=== PATIENT | male | born 1955 | race Caucasian/White ===

== ENCOUNTER → 2020-06-21 16:01 | Outpatient (BNVA) | payer MEDICARE, OTHER, SELFPAY | PROVIDERS: Family Provider Internal Medicine; PCP Internal Medicine; Visit Provider Nurse Practitioner Family | DX: Z20.828 Contact with and (suspected) exposure to other viral communicable diseases (principal); J06.9 Acute upper respiratory infection, unspecified | CPT/HCPCS: 87635 ==

== ENCOUNTER → 2022-05-03 08:28 | Outpatient (BNVA) | payer MEDICARE, OTHER, SELFPAY | PROVIDERS: Family Provider Internal Medicine; PCP Internal Medicine; Visit Provider Student in an Organized Health Care Education/Training Program | DX: M16.12 Unilateral primary osteoarthritis, left hip (principal) | CPT/HCPCS: 73502; 99203 ==

== ENCOUNTER → 2022-12-26 14:04 | Outpatient (BNVA) | payer MEDICARE, OTHER, SELFPAY | PROVIDERS: PCP Internal Medicine; Visit Provider Podiatrist Foot & Ankle Surgery | DX: M20.21 Hallux rigidus, right foot (principal); M20.22 Hallux rigidus, left foot | CPT/HCPCS: 73630; 99203 ==

== ENCOUNTER → 2023-09-26 07:53 | Outpatient (BNVA) | payer MEDICARE, OTHER, SELFPAY | PROVIDERS: PCP Internal Medicine; Visit Provider Student in an Organized Health Care Education/Training Program | DX: M16.12 Unilateral primary osteoarthritis, left hip (principal) | CPT/HCPCS: 73502; 99213 ==

== ENCOUNTER → 2024-01-31 08:00 | Outpatient (BNVA) | payer MEDICARE, OTHER, SELFPAY | PROVIDERS: PCP Internal Medicine; Visit Provider Student in an Organized Health Care Education/Training Program | DX: M16.12 Unilateral primary osteoarthritis, left hip (principal) | CPT/HCPCS: 99213 ==

== ENCOUNTER → 2024-02-28 07:20 | Outpatient (BNVA) | payer MEDICARE, OTHER, SELFPAY | PROVIDERS: PCP Internal Medicine; Visit Provider Student in an Organized Health Care Education/Training Program | DX: M16.12 Unilateral primary osteoarthritis, left hip (principal) | CPT/HCPCS: 20610; 77002; 99213; J3301 ==

== ENCOUNTER → 2024-05-28 14:41 | Outpatient (BNVA) | payer MEDICARE, OTHER, SELFPAY | PROVIDERS: PCP Internal Medicine; Visit Provider Student in an Organized Health Care Education/Training Program | DX: M16.12 Unilateral primary osteoarthritis, left hip (principal) | CPT/HCPCS: 99213 ==

== ENCOUNTER → 2024-08-28 08:10 | Outpatient (BNVA) | payer MEDICARE, OTHER, SELFPAY | PROVIDERS: PCP Internal Medicine; Visit Provider Student in an Organized Health Care Education/Training Program | DX: Z01.818 Encounter for other preprocedural examination (principal); M16.12 Unilateral primary osteoarthritis, left hip | CPT/HCPCS: 99214 ==

== ENCOUNTER → 2024-10-06 14:04 | Outpatient (BNVA) | payer MEDICARE, OTHER, SELFPAY | PROVIDERS: PCP Internal Medicine; Visit Provider Physician Assistant | DX: M16.12 Unilateral primary osteoarthritis, left hip (principal); Z01.818 Encounter for other preprocedural examination | CPT/HCPCS: 36415; 80053; 81003; 85025; 99213 ==

== ENCOUNTER → 2024-10-13 08:40 | Outpatient (BNVA) | payer MEDICARE, OTHER, SELFPAY | PROVIDERS: PCP Internal Medicine; Visit Provider Family Medicine | DX: Z01.818 Encounter for other preprocedural examination (principal) | CPT/HCPCS: 93005 ==

== ENCOUNTER 2024-10-20 10:19 | Outpatient (CLI) | payer MEDICARE, OTHER, SELFPAY ==
--- NOTE | 2024-10-20 10:26 | CT_ITS ---
WS: [id number] CT LEFT Hip NONCONTRAST [facility] TECHNIQUE: Noncontrast CT of the LEFT hip to include the LEFT knee CLINICAL INFORMATION: djd hip DLP: [id number] scans at [facility] use at least one of these dose optimization techniques: automated exposure control; mA and/or kV adjustment per patient size (includes targeted exams where dose is matched to clinical indication); or iterative reconstruction. FINDINGS: Advanced arthritis LEFT hip with subchondral cystic change and sclerosis involving the femoral head and adjacent acetabulum. Zhtc-bb-eftm articulation. Hypertrophic changes about the acetabulum and femoral head. Prior postoperative changes RIGHT ZEE. 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 Prior postoperative changes LEFT TKA. Sigmoid diverticulosis. LEFT inguinal hernia containing a loop of sigmoid colon nonobstructed. Recommend clinical correlation Fat-containing umbilical hernia. Mild prostate enlargement. CT/CT hip LT [facility] [id number] IMPRESSION: 1. Images obtained for preoperative purposes. 2. LEFT inguinal hernia containing a loop of nonobstructed sigmoid colon.
== END 2024-10-20 10:20 | disposition home or self-care (01) ==
LOC: RAD 10:23
PROVIDERS: PCP Family Medicine; Visit Provider Student in an Organized Health Care Education/Training Program
DX: M16.12 Unilateral primary osteoarthritis, left hip (principal); K40.90 Unilateral inguinal hernia, without obstruction or gangrene, not specified as recurrent; K42.9 Umbilical hernia without obstruction or gangrene; N40.0 Benign prostatic hyperplasia without lower urinary tract symptoms; K57.30 Diverticulosis of large intestine without perforation or abscess without bleeding; Z01.818 Encounter for other preprocedural examination; Z98.890 Other specified postprocedural states
CPT/HCPCS: 73700

== ENCOUNTER 2024-11-02 14:36 | Observation (INO) | payer MEDICARE, OTHER, SELFPAY ==
[2024-11-02] VITALS (23 sets, daily range): BP systolic 102–147; BP diastolic 53–90; PULSE 70–95; RESP 5–18; TEMP 36.3–37.1; O2SAT 90–100; BMI 32.7
[2024-11-02] MEDS: sodium chloride 0.9% 1,000 ML 30 ML IV (09:14)
[2024-11-02 09:15] LABS: Basophils % 0.6 %; Eosinophils # 0.1 10^3/uL (0.0-0.8); Eosinophils % 1.8 %; Hematocrit 44.2 % (37-53); Lymphocytes % 21.1 %; Mean Corpuscular Hemoglobin 28.9 pg (27-33); Mean Corpuscular Volume 87.4 fl (82-101); Mean Platelet Volume 9.9 fL (7.4-10.4); Monocytes # 0.5 10^3/uL (0.2-0.9); Monocytes % 10.3 %; Neutrophils % 65.8 %; Nucleated Red Blood Cells % 0 %; Platelet Count 209 10^3/cmm (157-399); Red Blood Count 5.06 10^6/uL (3.85-5.65); Red Cell Distribution Width 12.8 % (12.1-15.1); White Blood Count 4.87 10^3/uL (3.29-11.43)
[2024-11-02 09:32] LABS: Blood Urea Nitrogen 12 mg/dL (8-23); Calcium 9.1 mg/dL (8.5-10.5); Carbon Dioxide 25 mmol/L (22-29); Chloride 103 mmol/L (98-107); Glucose 98 mg/dL (65-115); Osmolality Calculated 286 mOsm/kg (285-295); Sodium 138 mmol/L (136-145)
--- NOTE | 2024-11-02 09:50 | W.PM.OPSUD ---
Surgery/Procedure H&P Update DATE OF PROCEDURE: November 02, 2024 DATE H&P PERFORMED: 10/06/24 H&P UPDATE INFORMATION: I have reviewed H&P completed within last 30 days, I have examined patient prior to procedure and No changes to prior documentation PREOP DIAGNOSIS: Left hip degenerative joint disease PRIMARY INDICATION FOR PROCEDURE: Left hip degenerative joint disease PLANNED PROCEDURE: Operation Date: 11/02/24 10:10 Proposed Procedures p Len Robot Anterior Hip Arthroplasty(Left) - Michael Hernandez DO
[2024-11-02 09:55] LABS: Anion Gap 14.4 (5-19); Potassium 4.4 mmol/L (3.5-5.1)
[2024-11-02] MEDS: acetaminophen 1,000 MG/100 ML PIGGYBACK 400 MG IV ×2 (09:57→17:28)
[2024-11-02] MEDS: ketorolac 30 mg/mL INJ IVP (09:58)
[2024-11-02] MEDS: ceFAZolin 2,000 MG in sodium chloride 0.9% (plus) 50 ML 100 MG IV ×2 (10:16→18:08)
[2024-11-02] MEDS: tranexamic acid 1,000 mg/10mL SDV 1000 MG IV (10:31)
[2024-11-02] MEDS: VANCOMYCIN ADD-Vantage 1,000 MG VIAL 1000 MG XX (11:09)
[2024-11-02] MEDS: lidocaine-epi 1% 20 mL INJ INJECTION (11:09)
--- NOTE | 2024-11-02 13:04 | PC.NURSE ---
Called and updated , Rebecca, of case status. No questions from Rebecca.
--- NOTE | 2024-11-02 13:46 | PC.NURSE ---
Notified Rebecca that case was closing at this time. No further questions.
--- NOTE | 2024-11-02 14:04 | XR_ITS ---
WS: [id number] Exam: XR hip LT 2-3V wo/w pel* [id number] Date/Time of Exam: 11/02/2024 2:08 PM Reason For Exam: OR PICS Intraoperative AP image of the LEFT hip shows a total hip arthroplasty in place. Postoperative changes in the adjacent soft tissues.
--- NOTE | 2024-11-02 14:25 | P.OP_ITS ---
Operative Report Date of procedure: November 02, 2024 Surgeon: Michael Hernandez DO Larry Operator: Chapo Hernandez PA-C: PA was necessary for assistance in this case with leg positioning, hip reduction retraction and protection of neurovascular structures as well as assistance in implantation, wound closure and dressing application. Procedure: Preoperative diagnosis: Left hip degenerative joint disease Post-op diagnosis: Same Procedure done: Left total hip arthroplasty?Len robotic assisted?anterior?approach Implants: Atul Trident acetabular shell size 56 mm [place] acetabular screw 25 mm Atul acetabular screw 20 mm Atul insignia hip stem standard offset size 7 femur stem Trident 0 degree polyethylene 36 degree inner diameter 36 mm femoral head ceramic -5mm Surgeon: Michael Hernandez DO Anesthesia: Other (Spinal) Estimated blood loss: 300mL IV fluids: 1900 mL Urine output: 100 mL Complications: None Findings: See operative report narrative Condition: stable Disposition: floor Brief History: Patient is a 69-year-old male presented to my outpatient office setting findings consistent with ilkg-mi-dfpt arthritis advanced degenerative joint disease of t he Left hip.? We talked about treatment options as far as nonoperative and operative intervention. Pt has failed conservative treatment.? Patient's Left hip degenerative joint disease has severe with worsening pain and decreased range of motion and gait disturbance. we talked about treatment options at this point time pt understands the risk benefits complication alternatives surgical nonsurgical treatment options.? Patient understands the risk of surgery and agrees to proceed.? Patient has underwent a preoperative evaluation. Pt cleared for surical intervention. Pt understood and was agreeable to proceed with a Left total hip arthroplasty consent was reviewed and signed with patient.?? All questions answered.? Patient will be admitted postoperatively. Procedure: Patient was seen evaluated in the preoperative holding area.? Consent was reviewed and signed with patient.? Correct operative extremity was then marked. ? All questions were answered at this time.? Once cleared by anesthesia used to brought back to the operative suite he then underwent anesthesia per the anesthesia department of a spinal anesthetic. The patient was administered tranexamic acid and preop antibiotics, and placed in the supine position. All bony prominences were properly padded, securely fixed to the table, and administered?general?anesthetic. The patient was subsequently transferred from the hospital bed to the [place] table. Bilateral lower extremities were placed in the traction boots. The pelvis was well approximated against the perineal post.? Final timeout performed.? Patient received appropriate preoperative antibiotics. Both hips were then prepped and draped in a normal orthopedic fashion.? Started with a small incision 2 fingerbreadths above the ASIS on the left iliac wing to place? pelvic arrays.? Small incision was made directly down to bone.? 3 pelvic pins were placed with excellent fixation.? The robotic array was secured to the nonoperative iliac wing using sterile technique. The extremity was then definitively draped in standard, sterile fashion.? The array was found to be visible by the robot. ?A standard??anterior?supine approach was performed to the?operative hip joint. The skin was incised down to the tensor fascia khang muscle and fascia. Fascia was split longitudinally in line with its fibers. The tensor fascia khang muscle was retracted laterally. The appropriate retractors were placed superiorly. Lateral circumflex vessels were identified and appropriately ligated. The hip capsule was then identified.? Appropriate retractors were placed superiorly and inferiorly along the capsule directly onto bone.??That was split longitudinally up to the acetabular rim in line with the femoral neck. The femoral capsule was found to be significantly hypertrophic, thickened, and significantly fibrotic. The capsule was then elevated both superiorly and inferiorly down to the lesser trochanter as well as up towards the greater trochanter.? Tag stitches were applied with 0 Vicryl into the capsule.? Femoral check point was?then inserted and confirmed on the lateral trochanter proximal femur.? .? A distal marker?of a sterile EKG lead was placed into the distal femur for measurement of leg lengths.? Preoperative leg lengths were registered and confirmed at this point. Next the appropriate-sized neck cut was then performed after being measured with robotic assistance. Femoral head was removed atraumatically this was found to have significant degenerative changes and deformity with significant osteophyte formation.? Femoral head was found to be severely degenerated and flattening with, eburnated bone. Acetabulum was also inspected and was found to have peripheral osteophytes as well as no evidence of cartilage consistent with qfjl-pr-cjlv arthritis.? Appropriate retractors were then placed in the?anterior?and posterior wall.? The remaining labrum was then excised from the periphery of the acetabular rim. Pulvinar was excised.? At this point re gistration for the Len was performed on the acetabular side and confirmed. Once confirmed, any osteophytes able to be were removed. We planned 40 degrees of lateral opening and 20 degrees of anteversion. At this point in time there was issues with the preregistration of the reaming for the Len robotic assisted and at this point in time we brought in fluoroscopic x-ray guidance so we could ream this under direct visualization. We started off with a small reamer to medialize and once we had satisfactory medialization to flatten the groove for the cotyloid fossa as well as to the teardrop we then sequentially reamed up to a size 56 which had excellent rim fit and reaming. At this point in time brought in our retractors had direct visualization. Reamer removed excellent bleeding bone circumferentially with sufficient?anterior?and posterior wall. ?The definitive acetabular cup 56 mm was inserted and impacted under fluoroscopic imaging to maintain exact positioning of of water reamers were with goals of 40 degree lateral opening and 20 degree anteversion. This was then impacted and excellent position. We then under [employer] robotic were able to plot out the version of the cup which had satisfactory alignment consistent with the preoperative plan. Patient acetabular cup had excellent fixation and for added fixation we added 2 screws. It was then secured with 2x 6.5 mm cancellous screws in appropriate safe zone position.? I subsquently drilled measured and place appropriate length acetabular screws which measured 25 mm and 20 mm.? These had excellent fixation final x-rays were taken of the acetabular work and showed a seated and well fixed acetabular cup with appropriate position acetabular screws.? ?Next a 36-mm X3 neutral liner was impacted into the?acetabular shell and secured. Hip was then irrigated with copious amounts of irrigation. At this point, the remaining femoral releases were then performed allowing the adequate mobilization of the?Left?femur.? Traction was confirmed to being off to the Left lower extremity and the femur was then externally rotated, extended, and adducted giving adequate exposure of the proximal femur in the surgical wound. Box cut was then used to enter the intramedullary canal of the?femur. Canal finder was placed down the canal of the?operative femur. Appropriate-sized broaches from a size 0 up to a size 7 were impacted down the operative femoral canal with the appropriate amount of anteversion.? A multiple trials were attempted and it was found?that?-5mm neck was found to be most appropriate for a soft tissue tensioning offset, stability and the leg lengths. At this point in time we brought in fluoroscopic imaging and x-rayed the contralateral hip as well as the view of the pelvis and had satisfactory leg length alignment radiographically. ?Stability was then assessed and excellent stability with patient external rotation of greater?than 90 degrees and traction with no marcela dence of hip instability.? Appropriate tension noted of the soft tissues. At this point, the hip was relocated.? I utilized C arm to evaluate for leg lengths as well I did slightly at the lengthen comparative to the contralateral extremity but this was the appropriate size for patient's stability and excellent soft tissue tensioning. Operative hip was then re-dislocated using a bone hook. All trials were then removed from the?operative femur. Adequate exposure was then once again obtained. The trials were removed. The definitive Atul insignia hip stem standard offset size 7 was impacted d own the?femoral canal with the appropriate amount of anteversion. The appropriate sized head 36 mm ceramic -5 mm was impacted onto the trunnion, and the?operative?hip was then relocated with traction and internal rotation. Once again final fluoroscopic imaging was taken in both the lateral AP plane satisfactory implantation of left total hip arthroplasty with satisfactory placement as well as leg lengths comparative utilizing the fluoroscopic imaging. No evidence of periprosthetic fracture noted throughout the prosthesis throughout the procedure. Once again hip stability was assessed and found to have excellent stability and appropriate soft tissue tensioning.? Hip was irrigated with copious amounts of irrigation.? Vancomycin powder was placed within the wound bed for added infection prophylaxis.? The superior and inferior leaflets of the capsule were then closed with Ethibond suture.? Vicryl tag stitches were removed.? The superficial layer of the tensor fascia khang fascia was closed using 0 stratafix suture in a running fashion.? Subcutaneous tissues were closed with running 3-0 Stratafix, skin was closed with 4-0 monocryl.?Surgical Prineo glue and steri strips were?applied and covered with a carlitos incisional VAC dressing to the operative side.?The incision on the non- operative side for the robotic array was irrigated and closed with layered fashion of 0 Vicryl, 2-0 Vicryl and running Monocryl suture and surgical glue and covered with Silverlon. ?The patient was subsequently awoken per Anesthesia and transferred to PACU in satisfactory condition. ?Leg lengths and rotational profile were found to be appropriate. ? DISPOSITION: The patient will be admitted to the hospital for initiation of DVT prophylaxis, physical therapy, pain control. The patient is to weight bear as tolerated.?Anterior?hip precautions, postoperative antibiotics,?postoperative TXA and Eliquis?for DVT prophylaxis.? Patient will receive appropriate discharge instructions as well as pain medication postoperatively and will follow up in my office in 2 weeks.? Patient with work with PT/OT.? Internal medicine will be consulted for medical management
--- NOTE | 2024-11-02 14:28 | XR_ITS ---
WS: [id number] Exam: XR hip LT 2-3V wo/w pel* [id number] Date/Time of Exam: 11/02/2024 2:28 PM Reason For Exam: POST OP LT HIP LEFT total hip prosthesis is in satisfactory alignment. Postoperative changes in the adjacent soft tissues. XR/XR hip LT 2-3V wo/w pel* [id number] IMPRESSION: 1. LEFT total hip replacement in satisfactory position.
--- NOTE | 2024-11-02 14:30 | W.PM.BPON ---
Date of Procedure: [November 02, 2024] Surgeon: [Dr. Hernandez DO] Forensic Chemist(s): [Chapo Hernandez PA-C] Procedure(s) performed: [Left total hip arthroplasty with Len robotic assist] Findings of the procedure(s): [Left hip degenerative joint disease. Procedure went well as planned.] Estimated blood loss: [300 mL] Specimen(s) removed: [Femoral head] Post-operative diagnosis: [Left hip degenerative joint disease]
--- NOTE | 2024-11-02 14:36 | PM.PACU ---
PACU note Narrative: Patient is a 69-year-old male that just underwent a left total hip arthroplasty. Pt transferred to PACU in stable condition. Dressing is dry. pt is awake and alert. pt can wiggle toes and plantarflex and dorsiflex foot. Patient was able to slightly raise left leg off bed but was limited due to pain. Distal pulses are palpable toes are warm and well-perfused. Cap refill is normal and under 2 seconds. Sensation to foot is intact. Pain is controlled. Exam: awake Disposition: admitted
[2024-11-02] MEDS: fentaNYL 50 mcg/mL INJ 2mL IVP (14:57)
--- NOTE | 2024-11-02 15:15 | ANE.PACU2 ---
Inpatient post-anesthesia follow up: Airway intact: Yes Vital signs: Temperature 98.3 F Pulse Rate 61 Respiratory Rate 15 Blood Pressure 108/62 Pulse Oximetry 97 Oxygen Delivery Me thod Room Air Oxygen Flow Rate 8 Fraction of Inspir ed Oxygen Hydration adequate: Yes Nausea and vomiting: No Pain level: 1 Mental status: Baseline
--- NOTE | 2024-11-02 15:30 | PC.NURSE ---
1523 - Danae RN into room 267 - accepted pt - left hip dressing c/d/i- rosy scd's in place - VS 137/83 - pulse 73 - 02 98% temp 97.5
[2024-11-02] MEDS: oxyCODONE 5 mg IR Tab/Cap PO ×2 (17:25→22:06)
[2024-11-02] MEDS: lactated ringers 1,000 ML 75 ML IV (17:26)
[2024-11-02] MEDS: chlorhexidine gluconate 0.12% Btl 473 mL 30 ML MUCOUS MEM ×2 (17:26→20:51)
[2024-11-02] MEDS: iron polysaccharide complex 150 mg Capsule PO (17:26)
[2024-11-02] MEDS: calcium carb-vit d 600mg/400unit 1 Tablet 1 EACH PO (17:26)
[2024-11-02] MEDS: mupirocin oint 22 gm 1 APPLIC NASAL (17:27)
[2024-11-02] MEDS: tranexamic acid 1,000 MG/100 ML PREMIX 600 MG IV (18:39)
--- NOTE | 2024-11-02 19:11 | PM.CONSULT ---
Providers/Reason For Consult Consulting Physician/Specialty*: Frase/Hospitalist Reason for Consult*: HTN Requesting Physician: Dr Hernandez Attending Physician: Michael Hernandez DO Primary Care Provider: David Glover MD History of Present Illness History of Present Illness Lg Robles is a 69 year old male Who presented to [facility] today for planned left hip replacement by Dr. Hernandez. He underwent general anesthesia and had an estimated 300 mL blood loss. He is seen in his room after surgery and is doing well. He has a little bit of minor irritation in the back of his throat, but he attributes most of it to postnasal drainage which he takes Singulair for. Postoperative pain is controlled currently. No complaints of chest pain or difficulty breathing. Tolerating oral intake. He has past medical history of hypertension and hospitalist were consulted to assist in perioperative management of such. He did take his metoprolol today but as directed held his FLORES inhibitor. In talking with him he also has a history of prostatic hypertrophy primarily presenting as nocturia. Currently doing well overall without specific complaints. Mr. Robles had previously seen Dr. Jean but has an appointment with Dr. David Glover scheduled for November. Dr. Glover will assume primary care provider roles going forward. Review of Systems General: Reports: Other (ROS as per HPI or as noted here) Medications/Allergies Home Medications ?Medication ?Instructions ?Recorded ?Confirmed ?Last Taken ?Type aspirin 81 mg tablet,delayed 81 mg PO DAILY 05/03/22 10/28/24 10/27/24 History release hydrochlorothiazide 12.5 mg tablet 12.5 mg PO DAILY 05/03/22 11/02/24 11/01/24 History montelukast 10 mg tablet 10 mg PO DAILY 05/03/22 11/02/24 11/01/24 History tamsulosin 0.4 mg capsule 0.4 mg PO DAILY 05/03/22 11/02/24 11/01/24 History vit C 50 mg-E 15 unit-zinc cit 4.5 2 tab PO DAILY 05/03/22 10/28/24 10/28/24 History mg-lutein 2.5 mg-zeaxan chew tablet (fg microtec) benazepril 40 mg tablet 40 mg PO DAILY 09/26/23 10/28/24 10/28/24 History naproxen sodium 220 mg tablet 440 mg PO BID PRN Mild Pain (Scale 05/28/24 10/28/24 10/27/24 History (Flanax (naproxen)) Score 1-4) metoprolol succinate 25 mg 25 mg PO DAILY 11/02/24 11/02/24 11/02/24 07:00 History tablet,extended release 24 hr Allergies Allergy/AdvReac Type Severity Reaction Status Date / Time amoxicillin Allergy upset Verified 10/13/24 09:03 stomach and dirrahea Current Medications Generic Name Dose Route Start Last Admin Trade Name Freq PRN Reason Stop Dose Admin Calcium Carbonate 1 each 11/02/24 18:00 11/02/24 17:26 Calcium Carb-Vit D 600mg/400unit 1 Tablet PO 1 each BID PRITI Administration Chlorhexidine Gluconate 30 ml 11/02/24 17:00 11/02/24 17:26 Chlorhexidine Gluconate 0.12% Btl 473 Ml MUCOUS MEM 30 ml QID PRITI Administration Lactated Ringer's 1,000 mls @ 75 mls/hr 11/02/24 15:33 11/02/24 17:26 Lactated Ringers IV 75 mls/hr .[id number] PRITI Administration Acetaminophen 1,000 mg in 100 mls @ 400 mls/hr 11/02/24 18:00 11/02/24 18:08 Acetaminophen IV 11/03/24 10:14 Infused Q8H PRITI Infusion Cefazolin Sodium 2,000 mg/ 50 mls @ 100 mls/hr 11/02/24 18:15 11/02/24 18:55 Sodium Chloride IV 11/03/24 10:44 Infused Q8H PRITI Infusion Protocol Mupirocin 1 applic 11/02/24 18:00 11/02/24 17:27 Mupirocin Oint 22 Gm NASAL 11/07/24 17:59 1 applic BID PRITI Administration Oxycodone HCl 5 - 10 mg 11/02/24 15:33 11/02/24 17:25 Oxycodone 5 Mg Ir Tab/Cap PO 5 mg Q4H PRN Administration MODERATE PAIN Polysaccharide Iron Complex 150 mg 11/02/24 18:00 11/02/24 17:26 Iron Polysaccharide Complex 150 Mg Capsule PO 150 mg BIDWM PRITI Administration PFSH Acute PFSH: Medical History (Updated 11/02/24 @ 19:20 by Ericka Mark MD) Degenerative joint disease involving multiple joints BPH without obstruction/lower urinary tract symptoms Hypertension Surgical History (Updated 11/02/24 @ 20:45 by Ericka Mark MD) Status post right hip replacement Status post left knee replacement Status post left hip replacement (11/02/24) Dr Hernandez Social History (Updated 11/02/24 @ 20:45 by Ericka Mark MD) Smoking and tobacco/nicotine status: never used tobacco/nicotine Alcohol intake: current Alcohol intake frequency: holidays/special occasions only Substance/Drug Use: never Vitals/I&O/Wt Last Vital Signs Temp 97.9 F 11/02/24 18:15 Pulse 88 11/02/24 18:15 Resp 17 11/02/24 18:15 BP 111/73 11/02/24 18:15 Pulse Ox 96 11/02/24 18:15 O2 Del Method Room Air 11/02/24 18:15 O2 Flow Rate 8 11/02/24 14:33 11/02/24 11/02/24 11/02/24 06:59 14:59 22:59 Intake Total 2100 / 2100 250 / 2350 Output Total 300 / 300 Balance 1800 / 1800 250 / 2050 Weight last 48 hrs Weight 115.666 kg Weight 115.666 kg Physical Exam Narrative: Patient is awake and alert. Seen sitting up in bedside chair. Able to provide history. Normocephalic. Extraocular movements are intact. Lungs are clear. Regular rate and rhythm. Sneed catheter noted. Able to move toes of both feet. Surgical dressings intact. Urinary Catheter Management: Sneed: Cath Placed During This Visit: yes Reason for Continuing Indwelling Catheter: Other Urinary Catheter Date of Insertion: 11/02/24 Urinary Catheter Time of Insertion: 10:35 Data 11/02/24 09:01 11/02/24 09:01 Other Labs: Radiology Impressions Hip/Pelvis X-Ray 11/02/24 14:28 IMPRESSION: 1. LEFT total hip replacement in satisfactory position. Laboratory Results WBC 4.87 10^3/uL (3.29-11.43) 11/02/24 09:01 RBC 5.06 10^6/uL (3.85-5.65) 11/02/24 09:01 Hgb 14.60 g/dL (11.27-16.99) 11/02/24 09:01 Hct 44.2 % (37-53) 11/02/24 09:01 MCV 87.4 fl (82-101) 11/02/24 09:01 MCH 28.9 pg (27-33) 11/02/24 09:01 MCHC 33.0 g/dL (30-55) 11/02/24 09:01 RDW 12.8 % (12.1-15.1) 11/02/24 09:01 Plt Count 209 10^3/cmm (157-399) 11/02/24 09:01 MPV 9.9 fL (7.4-10.4) 11/02/24 09:01 Neut % (Auto) 65.8 % 11/02/24 09:01 Lymph % (Auto) 21.1 % 11/02/24 09:01 [place] % (Auto) 10.3 % 11/02/24 09:01 Eos % (Auto) 1.8 % 11/02/24 09:01 Baso % (Auto) 0.6 % 11/02/24 09:01 Neut # (Auto) 3.20 10^3/uL (1.8-7.7) 11/02/24 09:01 Lymph # (Auto) 1.0 10^3/uL (0.8-4.8) 11/02/24 09:01 [place] # (Auto) 0.5 10^3/uL (0.2-0.9) 11/02/24 09:01 Eos # (Auto) 0.1 10^3/uL (0.0-0.8) 11/02/24 09:01 Baso # (Auto) 0.0 10^3/uL (0.0-0.1) 11/02/24 09:01 Nucleated RBC % (auto) 0 % 11/02/24 09:01 Nucleated RBCs # 0.0 /100WBC 11/02/24 09:01 Sodium 138 mmol/L (136-145) 11/02/24 09:01 Potassium 4.4 mmol/L (3.5-5.1) 11/02/24 09:01 Chloride 103 mmol/L (98-107) 11/02/24 09:01 Carbon Dioxide 25 mmol/L (22-29) 11/02/24 09:01 Anion Gap 14.4 (5-19) 11/02/24 09:01 BUN 12 mg/dL (8-23) 11/02/24 09:01 Creatinine 0.8 mg/dL (0.7-1.2) 11/02/24 09:01 GFR Calculation Not Reportable 11/02/24 09:01 Glucose 98 mg/dL (65-115) 11/02/24 09:01 Calculated Osmolality 286 mOsm/kg (285-295) 11/02/24 09:01 Calcium 9.1 mg/dL (8.5-10.5) 11/02/24 09:01 Blood Type O Positive 11/02/24 09:01 Rho(D) Type Rh positive 11/02/24 09: Antibody Screen Negative 11/02/24 09:01 A&P Assessment and plan (1) Status post left hip replacement: POD 0 from surgery as per Dr Hernandez. Did well. - General anesthesia - Pain control - On cefazolin post-op regimen, s/p vancomycin x one dose - Has sneed with orders to remove - Has SCDs and orders for eliquis to start in am - Stool softeners, laxatives as needed - PT/OT to see - Plan is for home with home health tomorrow if remains stable (2) Hypertension: Chronically managed with benazepril and hydrochlorothiazide as well as metoprolol. FLORES inhibitor held today. Beta-bernie was taken. - Continue metoprolol succinate daily for now - Evaluate blood pressures tomorrow to determine when to resume benazepril and hydrochlorothiazide, both are currently held Qualifiers: Hypertension type: primary hypertension Qualified Code(s): I10 - Essential (primary) hypertension (3) BPH without obstruction/lower urinary tract symptoms: Chronically on tamsulosin - Continue Flomax as per home dosing Plan Continue home singular and aspirin Home naproxen held currently; will defer to ortho regarding home pain management regimen Holding home eye vitamin currently VTE prophylaxis: Eliquis to start in the morning Antibiotics: Usual perioperative antibiotics Pending studies: A.m. labs Telemetry: not currently indicated Sneed: Placed perioperatively, orders to remove in place Line(s): peripheral IVs Disposition plan: Home with home health and outpatient follow up anticipated Code Status: Full Code Thank you for consultation Plans discussed and he was given an opportunity to ask questions PDMP PDMP Reviewed: Last Reviewed 11/02/24 20:52 by Ericka Mark MD Consult Attestations Medical Necessity Statement: as per attending Diagnoses Status post left hip replacement Z96.642 Primary hypertension I10 Hypertension type: primary hypertension BPH without obstruction/lower urinary tract symptoms N40.0
[2024-11-03] MEDS: ceFAZolin 2,000 MG in sodium chloride 0.9% (plus) 50 ML 100 MG IV ×2 (01:23→10:40)
[2024-11-03] MEDS: acetaminophen 1,000 MG/100 ML PIGGYBACK 400 MG IV (01:26)
[2024-11-03 04:45] VITALS: BP 106/62; PULSE 64; RESP 20; TEMP 37; O2SAT 96
[2024-11-03 05:46] LABS: Basophils % 0.1 %; Eosinophils % 0.1 %; Hematocrit 33.9 % (37-53); Lymphocytes # 0.8 10^3/uL (0.8-4.8); Lymphocytes % 7.1 %; Mean Corpuscular HGB Conc 32.4 g/dL (30-55); Mean Corpuscular Hemoglobin 28.9 pg (27-33); Mean Corpuscular Volume 89.2 fl (82-101); Mean Platelet Volume 10.2 fL (7.4-10.4); Monocytes # 0.9 10^3/uL (0.2-0.9); Monocytes % 8.4 %; Neutrophils # 9.33 10^3/uL (1.8-7.7); Neutrophils % 83.8 %; Nucleated Red Blood Cells % 0 %; Platelet Count 188 10^3/cmm (157-399); Red Cell Distribution Width 12.9 % (12.1-15.1); White Blood Count 11.14 10^3/uL (3.29-11.43)
[2024-11-03 06:04] VITALS: RESP 16
[2024-11-03] MEDS: oxyCODONE 5 mg IR Tab/Cap PO ×2 (06:04→11:27)
[2024-11-03] MEDS: lactated ringers 1,000 ML 75 ML IV (06:05)
[2024-11-03 06:09] LABS: Anion Gap 9.4 (5-19); Blood Urea Nitrogen 15 mg/dL (8-23); Calcium 8.1 mg/dL (8.5-10.5); Carbon Dioxide 26 mmol/L (22-29); Chloride 104 mmol/L (98-107); Glucose 115 mg/dL (65-115); Osmolality Calculated 282 mOsm/kg (285-295); Potassium 4.4 mmol/L (3.5-5.1); Sodium 135 mmol/L (136-145)
[2024-11-03 07:19] VITALS: BP 108/62; PULSE 61; RESP 15; TEMP 36.8; O2SAT 97
[2024-11-03] MEDS: aspirin 81 mg EC Tablet PO (08:00)
[2024-11-03] MEDS: iron polysaccharide complex 150 mg Capsule PO (08:00)
[2024-11-03] MEDS: tamsulosin 0.4 mg Capsule PO (08:00)
[2024-11-03] MEDS: calcium carb-vit d 600mg/400unit 1 Tablet 1 EACH PO (08:01)
[2024-11-03] MEDS: apixaban 5 mg Tablet 2.5 MG PO (08:01)
[2024-11-03] MEDS: metoprolol succinate ER (24 HR) 25 mg Tablet PO (08:01)
[2024-11-03] MEDS: multivitamin therapeutic Tablet 1 TAB PO (08:01)
[2024-11-03] MEDS: montelukast sodium 10 mg Tablet PO (08:01)
[2024-11-03] MEDS: chlorhexidine gluconate 0.12% Btl 473 mL 30 ML MUCOUS MEM (08:05)
[2024-11-03] MEDS: mupirocin oint 22 gm 1 APPLIC NASAL (08:06)
--- NOTE | 2024-11-03 09:39 | PC.CHAP ---
Pastoral Care Encounter/Spiritual Assessment Type of Contact [] Declined filter tank tender helper visit [] Patient/Family/Request visit [] Outpatient visit [] Follow-up visit [] Physician referral [] Code/Alert [x] Routine visit [] Staff referral [] Actively dying [] Patient sleeping [] Family support [] [] Out of room [] Palliative care [] [] Receiving care in room [] Pre-surgical visit [] Trauma [] Long length of stay [] ICU visit [] Other: Relational/Emotional Strength [x] Patient feels connected with others/family/visitors/staff [] Distress [] Loneliness/isolation [] Abandonment Spirituality of Patient [x] Person of Nicole [x] Attends Synagogue of their Nicole [x] Believes in Prayer [x] Reads Bible or Christianity materials [] There are Spiritual issues to be addressed Sound Effects Manager Interventions [x] Prayer [x] Active listening [] Non-anxious presence [x] Spiritual/emotional support [] Crisis/trauma care [] Spiritual counseling [] Bereavement support [] Provided bereavement packet [] Provided Bible/devotional materials [] Provided toy/stuffed animal, coloring book to patient or family member [] Provided Communion [] Anointing/[place] [] Salvation [x] Completed spiritual assessment [] Other: Impact on Illness or Injury [] Angry [] Fearful [] Anxious [] Often cries [] Exhaustion [] Unable to work [] Unable to attend amish [] Unable to walk/stand [] Unable to read [] Unable to drive [] Unable to eat/drink [] Unable to sleep [] Unable to be with family [] Patient intubated [] Other: Summary Time spent with patient 5 min
--- NOTE | 2024-11-03 10:38 | P.PN_ITS ---
Subjective 2 Subjective: Seen today. Patient resting comfortably in recliner states his leg hurts. He has an ice pack over it at this time. I went over all of the patient's home medications with him. Vitals/I&O/Wt Last Vital Signs Temp 98.3 F 11/03/24 07:19 Pulse 61 11/03/24 07:19 Resp 15 11/03/24 07:19 BP 108/62 11/03/24 07:19 Pulse Ox 97 11/03/24 07:19 O2 Del Method Room Air 11/03/24 07:19 O2 Flow Rate 8 11/02/24 14:33 11/02/24 11/03/24 11/03/24 22:59 06:59 14:59 Intake Total 370 / 2470 1098.75 / 3568.75 240 / 240 Output Total 900 / 1200 Balance 370 / 2170 198.75 / 2368.75 240 / 240 Weight last 48 hrs Weight 120.882 kg Weight 120.882 kg Weight 115.666 kg Weight 115.666 kg Physical Exam 2 Narrative: Resting comfortably in recliner Complains of pain in left hip, ice pack covering the area. Did not check surgical incision as he stated that he was seen by orthopedic surgery for this little while before I walked in. Abdomen soft nontender Lungs clear to auscultation bilaterally No edema appreciated lower extremities. Urinary Catheter Management: Sneed: Cath Placed During This Visit: yes, but has since been removed by the nurse Reason for Continuing Indwelling Catheter: Decision to DC Catheter Urinary Catheter Date of Insertion: 11/02/24 Urinary Catheter Time of Insertion: 10:35 Date Urinary Catheter Removed: 11/03/24 Time Urinary Catheter Discontinued: 06:17 Data 11/03/24 05:24 11/03/24 05:24 A&P Assessment and plan (1) Status post left hip replacement: POD 0 from surgery as per Dr Hernandez. Did well. - General anesthesia - Pain control - On cefazolin post-op regimen, s/p vancomycin x one dose - Has sneed with orders to remove - Has SCDs and orders for eliquis to start in am - Stool softeners, laxatives as needed - PT/OT to see - Plan is for home with home health tomorrow if remains stable (2) Hypertension: Chronically managed with benazepril and hydrochlorothiazide as well as metoprolol. FLORES inhibitor held today. Beta-bernie was taken. - Continue metoprolol succinate daily for now - Evaluate blood pressures tomorrow to determine when to resume benazepril and hydrochlorothiazide, both are currently held Qualifiers: Hypertension type: primary hypertension Qualified Code(s): I10 - Essential (primary) hypertension (3) BPH without obstruction/lower urinary tract symptoms: Chronically on tamsulosin - Continue Flomax as per home dosing Plan Continue home singular and aspirin Home naproxen held currently; will defer to ortho regarding home pain management regimen Holding home eye vitamin currently VTE prophylaxis: Eliquis to start in the morning Antibiotics: Usual perioperative antibiotics Pending studies: A.m. labs Telemetry: not currently indicated Sneed: Placed perioperatively, orders to remove in place Line(s): peripheral IVs Disposition plan: Home with home health and outpatient follow up anticipated Code Status: Full Code Thank you for consultation Plans discussed and he was given an opportunity to ask questions 11/03/2024 Plan to discharge home by orthopedic surgery Continue Eliquis for DVT prophylaxis Hold aspirin at this time till seen by PCP ? Stop naproxen. Explained the patient high risk of bleed if being on NSAID Eliquis and aspirin together. Explained the importance of stopping certain medications. Blood pressure has been normal to soft in the hospital. Told him to stop benazepril until seen by primary care doctor and continue to hold hydrochlorothiazide and gradually restart within 48 to 72 hours based on how blood pressure does Explained to him that pain medication such as oxycodone may also lower down blood pressure. He should check his blood pressure at home and be cautious before taking his regular blood pressure medications. Patient demonstrated understanding. Personally went over the logtrust with him. Medicine will continue to follow while patient is in the hospital. PDMP PDMP Reviewed: Not Reviewed Attestations 2 Medical Necessity Statement*: Defer to primary Coding Level of Care Code Acute Code for [facility] Fwd Diagnoses Status post left hip replacement Z96.642 Primary hypertension I10 Hypertension type: primary hypertension BPH without obstruction/lower urinary tract symptoms N40.0
[2024-11-03 11:22] VITALS: BP 130/73; PULSE 73; RESP 15; TEMP 36.8; O2SAT 98
[2024-11-03 11:27] VITALS: RESP 18
--- NOTE | 2024-11-03 12:23 | PM.DCS ---
Discharge Providers Date of Admission: 11/02/24 14:36 Date of Discharge: November 03, 2024 Attending Provider at Admission: Michael Hernandez DO Attending Provider at Discharge: Michael Hernandez DO Consults: Dr. Mark?hospitalist Primary Care Provider: David Glover MD Diagnoses at Discharge Discharge Diagnosis (1) Status post left hip replacement: Status: Acute Permanent problem details: Dr Hernandez (2) Hypertension: Status: Chronic Qualifiers: Hypertension type: primary hypertension Qualified Code(s): I10 - Essential (primary) hypertension (3) BPH without obstruction/lower urinary tract symptoms: Status: Chronic Reason for Visit Reason for Visit: [id number] Brief History: Status post left total hip arthroplasty?Len robotic assisted anterior approach Hospital Course Hospital Course Patient was brought to the hospital through the preoperative holding area with plan for left total hip arthroplasty 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 Once cleared by anesthesia for surgery subsequently was taken back to the operative suite underwent anesthesia per the anesthesia department and then underwent [left ] total hip arthroplasty with Len robotic assistance anterior approach without any complications. Patient was then subsequently taken back to PACU in stable condition recovering well. Once recovered, patient was then subsequently admitted to the floor postoperatively. Internal medicine was consulted for medical management assistance. Patient weightbearing as tolerated to the right lower extremity, anterior hip precautions. PT/OT. Pain control. DVT prophylaxis. Postoperative antibiotics and TXA. dressing was change as needed. Internal medicine was on board and appreciate their medical management and assistance. Pt was determined on postoperative day [1 ] the patient was stable for discharge from orthopedic as well as internal medicine standpoint. Patient's labs were monitored daily. Patient will receive appropriate pain medication as well as DVT prophylaxis postoperatively. Appropriate discharge instructions as well. Patient was then discharged in stable condition. Patient will discharge home. Pt will follow-up with Orthopedics in the office in 2 weeks. Patient understands and agrees with current plan. All questions answered. Understands there is any issues or concerns and contact the office. Physical Exam Narrative: Left hip examination: Dressing on in place, clean dry and intact. No evidence of saturation. Patient has normal postoperative swelling and tenderness to palpation to the hip. Compartments are soft compressible,'s calf soft and nontender. Sensations intact to light touch distally. Distal pulses are palpable. Patient is able to wiggle toes as well as plantarflex and dorsiflex ankle. Patient is able to perform straight leg raise is dressing to the right hip iliac wing is intact with no signs of saturation. Urinary Catheter Management: [place]: Cath Placed During This Visit: yes, but has since been removed by the nurse Reason for Continuing Indwelling Catheter: Decision to DC Catheter Urinary Catheter Date of Insertion: 11/02/24 Urinary Catheter Time of Insertion: 10:35 Date Urinary Catheter Removed: 11/03/24 Time Urinary Catheter Discontinued: 06:17 Discharge Data Studies Completed and Pending Completed Studies During Hospitalization Category Date Time Status XR hip LT 2-3V wo/w pel* [id number] Routine Exams 11/02/24 14:04 Completed XR hip LT 2-3V wo/w pel* [id number] Stat Exams 11/02/24 14:28 Completed Pending at discharge Category Date Time Status Basic Metabolic Panel AM LABS Lab 11/04/24 04:00 Ordered Basic Metabolic Panel AM LABS Lab 11/05/24 04:00 Ordered Complete Blood Count w/Auto AM LABS Lab 11/04/24 04:00 Ordered Complete Blood Count w/Auto AM LABS Lab 11/05/24 04:00 Ordered Radiology Impressions Hip/Pelvis X-Ray 11/02/24 14:28 IMPRESSION: 1. LEFT total hip replacement in satisfactory position. Laboratory Results WBC 11.14 10^3/uL (3.29-11.43) 11/03/24 05:24 RBC 3.80 10^6/uL (3.85-5.65) L 11/03/24 05:24 Hgb 11.00 g/dL (11.27-16.99) L 11/03/24 05:24 Hct 33.9 % (37-53) L 11/03/24 05:24 MCV 89.2 fl (82-101) 11/03/24 05:24 MCH 28.9 pg (27-33) 11/03/24 05:24 MCHC 32.4 g/dL (30-55) 11/03/24 05:24 RDW 12.9 % (12.1-15.1) 11/03/24 05:24 Plt Count 188 10^3/cmm (157-399) 11/03/24 05:24 MPV 10.2 fL (7.4-10.4) 11/03/24 05:24 Neut % (Auto) 83.8 % 11/03/24 05:24 Lymph % (Auto) 7.1 % 11/03/24 05:24 Hughes % (Auto) 8.4 % 11/03/24 05:24 Eos % (Auto) 0.1 % 11/03/24 05:24 Baso % (Auto) 0.1 % 11/03/24 05:24 Neut # (Auto) 9.33 10^3/uL (1.8-7.7) H 11/03/24 05:24 Lymph # (Auto) 0.8 10^3/uL (0.8-4.8) 11/03/24 05:24 Hughes # (Auto) 0.9 10^3/uL (0.2-0.9) 11/03/24 05:24 Eos # (Auto) 0.0 10^3/uL (0.0-0.8) 11/03/24 05:24 Baso # (Auto) 0.0 10^3/uL (0.0-0.1) 11/03/24 05:24 Nucleated RBC % (auto) 0 % 11/03/24 05:24 Nucleated RBCs # 0.0 /100WBC 11/03/24 05:24 Sodium 135 mmol/L (136-145) L 11/03/24 05:24 Potassium 4.4 mmol/L (3.5-5.1) 11/03/24 05:24 Chloride 104 mmol/L (98-107) 11/03/24 05:24 Carbon Dioxide 26 mmol/L (22-29) 11/03/24 05:24 Anion Gap 9.4 (5-19) 11/03/24 05:24 BUN 15 mg/dL (8-23) 11/03/24 05:24 Creatinine 0.9 mg/dL (0.7-1.2) 11/03/24 05:24 GFR Calculation Not Reportable 11/03/24 05:24 Glucose 115 mg/dL (65-115) 11/03/24 05:24 Calculated Osmolality 282 mOsm/kg (285-295) L 11/03/24 05:24 Calcium 8.1 mg/dL (8.5-10.5) L 11/03/24 05:24 Blood Type O Positive 11/02/24 09:01 Rho(D) Type Rh positive 11/02/24 09:01 Antibody Screen Negative 11/02/24 09:01 Vitals Last Vital Signs Temp 98.2 F 11/03/24 11:22 Pulse 73 11/03/24 11:22 Resp 18 11/03/24 11:27 BP 130/73 11/03/24 11:22 Pulse Ox 98 11/03/24 11:22 O2 Del Method Room Air 11/03/24 11:22 O2 Flow Rate 8 11/02/24 14:33 Discharge Plan Discharge Patient Disposition: Home Condition: Stable Prescriptions: New Eliquis 2.5 mg tablet 2.5 mg PO BID 35 Days Qty: 70 0RF polyethylene glycol 3350 17 gram Powder In Packet 17 g PO DAILY Qty: 14 0RF polysaccharide iron complex [Ferrex 150] 150 mg iron Capsule 150 mg PO BIDWM Qty: 30 0RF methocarbamol 500 mg tablet 500 mg PO TID PRN (Reason: muscle spasms/pain) 14 Days Qty: 42 0RF oxycodone 5 mg tablet 10 mg PO Q6H PRN (Reason: pain) 7 Days Qty: 56 0RF Rx Instructions: 1 tab moderate pain 2 tabs severe pain Continued tamsulosin 0.4 mg capsule 0.4 mg PO DAILY montelukast 10 mg tablet 10 mg PO DAILY Ocuvite Eye Health 50 mg-15 unit- 4.5 mg-2.5 mg tablet,chewable 2 tab PO DAILY metoprolol succinate 25 mg tablet extended release 24 hr 25 mg PO DAILY Held hydrochlorothiazide 12.5 mg tablet 12.5 mg PO DAILY Hold Instructions: hold for now and resume in 48-72 hours based on blood pressure aspirin 81 mg tablet,delayed release (DR/EC) 81 mg PO DAILY Hold Instructions: see pcp benazepril 40 mg tablet 40 mg PO DAILY Hold Instructions: see pcp Discontinued naproxen sodium [Flanax (naproxen)] 220 mg tablet 440 mg PO BID PRN (Reason: Mild Pain (Scale Score 1-4)) Discharge Orders: Discharge Order (Routine); Ordered 11/03/24 Ordered By: Michael Hernandez Referrals: David Glover MD [Primary Care Provider] - 11/06/24 9:45 am Michael Hernnadez DO [Physician] - 11/17/24 9:45 am Discharge Diet: Regular and Cardiac Discharge Activity: Limit activity as instructed Patient Instructions: Methocarbamol (By mouth), Oxycodone, Rapid Release (By mouth), Apixaban (By mouth), Total Hip Replacement (GEN) Activity Restrictions/Additional Instructions: Orthopedic discharge instructions Left hip--Brooke Dressing--Keep dressing on and dry. After 3 days you can remove some of the dressing and shower. disconnect battery pack when showering. Brooke dressing will stay on until follow up appt in 2 weeks. The battery pack for the dressing will at 5-7 days. Battery pack can be removed and discarded once batteries . Patient should keep dressings clean dry and intact Okay to shower over dressings if they do become wet these should be removed and new dressings applied Right hip-silverlon dressing--Keep incisions clean dry and intact, leave Silverlon bandage dressings on in place for 7 days after that may rinse incisions with warm soapy water pat dry and redress with a dry dressing Weight-bear as tolerated to operative lower extremity Posterior hip precautions as instructed by physical therapy--posterior avoid hip flexion past 90 degrees, adduction, avoid internal rotation When sleeping or lying in bed in supine position use abduction pillow to prevent legs from crossing midline Ice as needed for pain and swelling Take pain medication as prescribed Take muscle relaxer as prescribed for muscle spasms/pain recommend taking in the evening before bed Okay to take supplemental iron per internal medicine's recommendations Take antinausea medication as needed May supplement for pain with Tylenol [id number] as needed(1000 mg every 8 hours-do not exceed more than 3000mg in 24-hour period) Supplement with Citracal vitamin D for bone health and healing Pain medication can cause constipation. take [id number] stool softeners and or MiraLAX. Take blood thinner as prescribed (Eliquis) Follow-up in the orthopedic office in 2 weeks Contact the office for any questions or concerns Discharge Attestations Time Spent in Discharge Care*: less than 30 min Quality Metrics Clinical Quality Measures [ No reported AMI, CVA or VTE this stay] Coding Level of Care Code Acute Code for Chg Fwd Diagnoses Status post left hip replacement Z96.642 Primary hypertension I10 Hypertension type: primary hypertension BPH without obstruction/lower urinary tract symptoms N40.0
== END 2024-11-03 12:55 | disposition home or self-care (01) ==
LOC: MEDSURG 14:36
PROVIDERS: Physician Assistant; Admitting Provider Student in an Organized Health Care Education/Training Program; PCP Family Medicine; Visit Provider Student in an Organized Health Care Education/Training Program
PROC: 8E0Y0CZ Robotic Assisted Procedure of Lower Extremity, Open Approach (ICD-10-PCS; CPT 27130; principal; 2024-11-02 09:40)
DX: M16.12 Unilateral primary osteoarthritis, left hip (principal); I10 Essential (primary) hypertension; N40.0 Benign prostatic hyperplasia without lower urinary tract symptoms; Z79.82 Long term (current) use of aspirin; Z96.641 Presence of right artificial hip joint; Z96.652 Presence of left artificial knee joint
CPT/HCPCS: 20985; 27130; 36415; 51702; 73502; 80048; 85025; 86850; 86900; 97116; 97161; 97165; 97530; C1776; G0378; J0131; J0690; J1100; J1171; J1200; J1885; J2250; J2405; J2704; J3010; J3370; J3490; J7030; J7120; J9999

== ENCOUNTER → 2024-11-17 09:36 | Outpatient (BNVA) | payer MEDICARE, OTHER, SELFPAY | PROVIDERS: PCP Family Medicine; Visit Provider Physician Assistant | DX: Z98.890 Other specified postprocedural states (principal); Z96.642 Presence of left artificial hip joint | CPT/HCPCS: 73502; 99024 ==

== ENCOUNTER → 2024-12-29 10:11 | Outpatient (BNVA) | payer MEDICARE, OTHER, SELFPAY | PROVIDERS: PCP Family Medicine; Visit Provider Physician Assistant | DX: Z96.642 Presence of left artificial hip joint (principal) | CPT/HCPCS: 73502; 99024 ==